=== PATIENT | male | born 1950 | race Caucasian/White ===

== ENCOUNTER → 2016-09-28 | Outpatient (CLI) | payer OTHER ==
[~2016-09-28] MED LIST: ALBUMIN HUMAN 25%, 25GM/100ML ONE; ASCO10004 PO; CHOL20002 PO; FURO20TA3 PO; LEUP3.75 IM; LIDOCAINE 1%, 20ML ONE; MULT-208 PO; OXYC5CAP4 PO; POLY17PO5 PO; PRAV20TA2 PO; PREG75CA PO; SODIUM BICARBONATE 4.2%, 5ML ONE; SPIR25TA3 PO
== END | disposition home or self-care (01) ==
LOC: RAD 11:37
PROVIDERS: ATTEND Internal Medicine Gastroenterology
DX: R18.8 Other ascites (principal); K70.30 Alcoholic cirrhosis of liver without ascites; R14.0 Abdominal distension (gaseous); N18.9 Chronic kidney disease, unspecified; R60.0 Localized edema
CPT/HCPCS: 49083; J3490; P9047

== ENCOUNTER → 2016-10-15 | Outpatient (CLI) | payer OTHER ==
[~2016-10-15] MED LIST changes: +ALBUMIN HUMAN 25% 200 ML IV ONE; -ALBUMIN HUMAN 25%, 25GM/100ML ONE
== END | disposition home or self-care (01) ==
LOC: RAD 10:43
PROVIDERS: ATTEND Internal Medicine Gastroenterology
DX: K70.31 Alcoholic cirrhosis of liver with ascites (principal); N18.9 Chronic kidney disease, unspecified; R60.0 Localized edema
CPT/HCPCS: 49083; J3490; P9047

== ENCOUNTER → 2016-11-08 | Outpatient (CLI) | payer OTHER ==
[~2016-11-08] MED LIST changes: -ALBUMIN HUMAN 25% 200 ML IV ONE; +ALBUMIN HUMAN 25% 300 ML IV ONE; -LIDOCAINE 1%, 20ML ONE; +LIDOCAINE 2%, 20ML ONE
== END | disposition home or self-care (01) ==
LOC: RAD 11:33
PROVIDERS: ATTEND Internal Medicine Gastroenterology
DX: K70.31 Alcoholic cirrhosis of liver with ascites (principal); R60.0 Localized edema; N18.9 Chronic kidney disease, unspecified
CPT/HCPCS: 49083; J3490; P9047

== ENCOUNTER → 2016-11-15 | Outpatient (CLI) | payer OTHER ==
[~2016-11-15] MED LIST changes: -ALBUMIN HUMAN 25% 300 ML IV ONE; -LIDOCAINE 2%, 20ML ONE; -SODIUM BICARBONATE 4.2%, 5ML ONE
== END | disposition home or self-care (01) ==
LOC: ROC 14:34
PROVIDERS: ATTEND Radiology Radiation Oncology
DX: Z08 Encounter for follow-up examination after completed treatment for malignant neoplasm (principal); C61 Malignant neoplasm of prostate; K74.60 Unspecified cirrhosis of liver; K76.6 Portal hypertension
CPT/HCPCS: 99212; G0463

== ENCOUNTER → 2016-12-03 | Outpatient (CLI) | payer OTHER ==
[~2016-12-03] MED LIST changes: +ALBUMIN HUMAN 25%, 25GM/100ML ONE
== END | disposition home or self-care (01) ==
LOC: RAD 12:39
PROVIDERS: ATTEND Internal Medicine Gastroenterology
DX: R18.8 Other ascites (principal); N18.9 Chronic kidney disease, unspecified; K70.30 Alcoholic cirrhosis of liver without ascites
CPT/HCPCS: 49083; P9047

== ENCOUNTER → 2016-12-16 | Outpatient (CLI) | payer OTHER ==
[~2016-12-16] MED LIST changes: +ALBUMIN HUMAN 25% 200 ML IV ONE; +ALBUMIN HUMAN 25%, 25GM/100ML IV ONE; -ALBUMIN HUMAN 25%, 25GM/100ML ONE; +LIDOCAINE 1%, 20ML ONE; +PLEASE ENTER HEIGHT AND WEIGHT MC SCH
== END | disposition home or self-care (01) ==
LOC: RAD 09:24
PROVIDERS: ATTEND Family Medicine
DX: K70.31 Alcoholic cirrhosis of liver with ascites (principal); N18.9 Chronic kidney disease, unspecified; R60.0 Localized edema
CPT/HCPCS: 49083; J3490; P9047

== ENCOUNTER → 2017-01-11 | Outpatient (CLI) | payer OTHER ==
[~2017-01-11] MED LIST changes: -ALBUMIN HUMAN 25% 200 ML IV ONE; -ALBUMIN HUMAN 25%, 25GM/100ML IV ONE; -PLEASE ENTER HEIGHT AND WEIGHT MC SCH
== END | disposition home or self-care (01) ==
LOC: RAD 09:59
PROVIDERS: ATTEND Internal Medicine Gastroenterology
DX: K70.31 Alcoholic cirrhosis of liver with ascites (principal); R60.0 Localized edema; N18.9 Chronic kidney disease, unspecified
CPT/HCPCS: 49083; J3490

== ENCOUNTER → 2017-02-23 | Outpatient (CLI) | payer OTHER ==
[~2017-02-23] MED LIST changes: +ALBUMIN HUMAN 25%, 25GM/100ML ONE; +OXYC5CAP2 PO; -OXYC5CAP4 PO
== END | disposition home or self-care (01) ==
LOC: RAD 13:46
PROVIDERS: ATTEND Internal Medicine Gastroenterology
DX: K70.31 Alcoholic cirrhosis of liver with ascites (principal); R60.0 Localized edema; N18.9 Chronic kidney disease, unspecified
CPT/HCPCS: 49083; J3490; P9047

== ENCOUNTER → 2017-05-23 | Outpatient (CLI) | payer MEDICARE, OTHER ==
[~2017-05-23] VITALS: Ht 177.8 cm; Wt 122.7 kg
[~2017-05-23] MED LIST changes: -ALBUMIN HUMAN 25%, 25GM/100ML ONE; -LIDOCAINE 1%, 20ML ONE; +PREG150C PO; +RIFA550T4 PO; +SPIR50TA2 PO; +ZINC220T PO
[2017-05-23 13:48] LABS: ASPARTATE AMINO TRANSFERASE 12 U/L (15-37); BLOOD UREA NITROGEN 24 mg/dL (7-18)
== END | disposition home or self-care (01) ==
LOC: STAR 12:37 → EDSTATUS 05-25 15:00
PROVIDERS: ATTEND Internal Medicine Gastroenterology
DX: Z01.818 Encounter for other preprocedural examination (principal); I83.10 Varicose veins of unspecified lower extremity with inflammation; Z86.010 Personal history of colon polyps
CPT/HCPCS: 36415; 80053; 93005

== ENCOUNTER → 2017-05-24 | Outpatient (CLI) | payer OTHER ==
[~2017-05-24] MED LIST changes: +ALBUMIN HUMAN 25%, 25GM/100ML ONE; +LIDOCAINE 1%, 10ML ONE
== END | disposition home or self-care (01) ==
LOC: RAD 11:30
PROVIDERS: ATTEND Internal Medicine Gastroenterology
DX: K70.31 Alcoholic cirrhosis of liver with ascites (principal); N18.9 Chronic kidney disease, unspecified; R60.0 Localized edema
CPT/HCPCS: 49083; J3490; P9047

== ENCOUNTER → 2017-11-04 | Outpatient (CLI) | payer OTHER ==
[~2017-11-04] MED LIST changes: -LIDOCAINE 1%, 10ML ONE; +LIDOCAINE-MPF 1%, 2ML ONE
== END | disposition home or self-care (01) ==
LOC: RAD 09:48
PROVIDERS: ATTEND Internal Medicine Gastroenterology
DX: K74.60 Unspecified cirrhosis of liver (principal); R18.8 Other ascites
CPT/HCPCS: 49083; J3490; P9047

== ENCOUNTER → 2017-12-12 | Outpatient (CLI) | payer OTHER ==
[~2017-12-12] MED LIST changes: -LIDOCAINE-MPF 1%, 2ML ONE; +LIDOCAINE-MPF 2% ,5ML ONE
== END | disposition home or self-care (01) ==
LOC: RAD 14:09
PROVIDERS: ATTEND Internal Medicine Gastroenterology
DX: K70.31 Alcoholic cirrhosis of liver with ascites (principal); R60.0 Localized edema; N18.9 Chronic kidney disease, unspecified; K72.10 Chronic hepatic failure without coma
CPT/HCPCS: 49083; J3490; P9047

== ENCOUNTER → 2018-01-05 | Outpatient (CLI) | payer OTHER ==
[~2018-01-05] MED LIST changes: -ALBUMIN HUMAN 25%, 25GM/100ML ONE; -LIDOCAINE-MPF 2% ,5ML ONE; -SPIR25TA3 PO; +SPIR25TA5 PO; -SPIR50TA2 PO; +SPIR50TA4 PO
== END | disposition home or self-care (01) ==
LOC: CFH 09:40
PROVIDERS: ATTEND Internal Medicine Gastroenterology
DX: K70.31 Alcoholic cirrhosis of liver with ascites (principal); R16.1 Splenomegaly, not elsewhere classified; I12.9 Hypertensive chronic kidney disease with stage 1 through stage 4 chronic kidney disease, or unspecified chronic kidney disease; N18.9 Chronic kidney disease, unspecified; K72.10 Chronic hepatic failure without coma; E55.9 Vitamin D deficiency, unspecified; I85.00 Esophageal varices without bleeding
CPT/HCPCS: 93975

== ENCOUNTER → 2018-01-13 | Outpatient (CLI) | payer OTHER ==
[~2018-01-13] MED LIST changes: +LIDOCAINE-MPF 2%, 2ML ONE
== END | disposition home or self-care (01) ==
LOC: RAD 08:39
PROVIDERS: ATTEND Internal Medicine Gastroenterology
DX: K70.31 Alcoholic cirrhosis of liver with ascites (principal); R53.83 Other fatigue; N18.9 Chronic kidney disease, unspecified; I85.00 Esophageal varices without bleeding; K72.10 Chronic hepatic failure without coma; E60 Dietary zinc deficiency; E55.9 Vitamin D deficiency, unspecified; R60.0 Localized edema
CPT/HCPCS: 49083; J3490

== ENCOUNTER → 2018-03-01 | Outpatient (CLI) | payer OTHER ==
[~2018-03-01] MED LIST changes: -CHOL20002 PO; +CHOL200052 PO
== END | disposition home or self-care (01) ==
LOC: RAD 11:35
PROVIDERS: ATTEND Internal Medicine Gastroenterology
DX: K70.31 Alcoholic cirrhosis of liver with ascites (principal); N18.9 Chronic kidney disease, unspecified; I85.00 Esophageal varices without bleeding; E55.9 Vitamin D deficiency, unspecified; K72.10 Chronic hepatic failure without coma
CPT/HCPCS: 49083; J3490

== ENCOUNTER → 2018-05-16 | Outpatient (CLI) | payer OTHER ==
[~2018-05-16] MED LIST changes: +LIDOCAINE-MPF 1%, 5ML ONE; -LIDOCAINE-MPF 2%, 2ML ONE
== END | disposition home or self-care (01) ==
LOC: RAD 11:53
PROVIDERS: ATTEND Internal Medicine Gastroenterology
DX: R18.8 Other ascites (principal)
CPT/HCPCS: 49083

== ENCOUNTER → 2018-08-16 | Outpatient (CLI) | payer OTHER ==
[~2018-08-16] MED LIST changes: +ERGO500018 PO; -LIDOCAINE-MPF 1%, 5ML ONE
== END | disposition home or self-care (01) ==
LOC: CFH 09:12
PROVIDERS: ATTEND Internal Medicine Gastroenterology
DX: R16.1 Splenomegaly, not elsewhere classified (principal); R18.8 Other ascites; R53.83 Other fatigue; I85.00 Esophageal varices without bleeding; I25.10 Atherosclerotic heart disease of native coronary artery without angina pectoris; E55.9 Vitamin D deficiency, unspecified; E60 Dietary zinc deficiency; Z86.010 Personal history of colon polyps
CPT/HCPCS: 93975

== ENCOUNTER → 2018-08-16 | Outpatient (CLI) | payer OTHER ==
[2018-08-16 12:49] LABS: INTERNATIONAL NORMALIZED RATIO 1.26 (0.93-1.1); PROTHROMBIN TIME 13.1 Seconds (9.6-11.5)
[2018-08-16 12:50] LABS: ALANINE AMINOTRANSFERASE 13 U/L (12-78); ALBUMIN 3.1 g/dL (3.4-5.0); ANION GAP 3 mmol/L (5-15); CALCIUM 8.5 mg/dL (8.5-10.1); CHLORIDE 110 mmol/L (98-107); CREATININE 1.55 mg/dL (0.7-1.3)
[2018-08-16 12:52] LABS: ALKALINE PHOSPHATASE 112 U/L (45-117); BILIRUBIN,TOTAL 1.2 mg/dL (0.2-1.0); TOTAL PROTEIN 7.2 g/dL (6.4-8.2)
[2018-08-16 13:16] LABS: BASOPHILS # (AUTO) 0.03 x10^3/uL (0-0.1); BASOPHILS % (AUTO) 1 % (0-1); EOSINOPHILS # (AUTO) 0.43 x10^3/uL (0-0.4); EOSINOPHILS % (AUTO) 9 % (1-7); LYMPHOCYTES # (AUTO) 0.72 x10^3/uL (1-3.4); LYMPHOCYTES % (AUTO) 15 % (22-44); MD SCAN; MEAN CORPUSCULAR HEMOGLOBIN 30.9 pg (27.5-34.5); MONOCYTES # (AUTO) 0.42 x10^3/uL (0.2-0.8); MONOCYTES % (AUTO) 9 % (2-9); NEUTROPHILS # (AUTO) 3.18 x10^3/uL (1.8-6.8); NEUTROPHILS % (AUTO) 67 % (42-75); PLATELET COUNT 55 x10^3/uL (130-400); RED CELL DISTRIBUTION WIDTH 15.4 % (9.4-14.8)
== END | disposition home or self-care (01) ==
LOC: STAR 11:35
PROVIDERS: ATTEND Internal Medicine Gastroenterology
DX: I85.00 Esophageal varices without bleeding (principal); R10.31 Right lower quadrant pain
CPT/HCPCS: 36415; 80053; 85025; 85610; 85730; 93005

== ENCOUNTER 2018-08-22 05:35 | Day surgery (SDC) | payer OTHER ==
[~2018-08-22] VITALS: Ht 177.8 cm; Wt 110.0 kg
[2018-08-22] MEDS ORDERED: LACTATED RINGERS 1,000 ML IV SCH (06:17)
[2018-08-22 06:18] VITALS: BP 110/66
[2018-08-22] MEDS ORDERED: ALBUTEROL/IPRATROPIUM 2.5MG/0.5MG, 3 ML NPPB PRN (07:30)
[2018-08-22] MEDS ORDERED: FENTANYL PF 100 MCG/2ML IV PRN (07:30)
[2018-08-22] MEDS ORDERED: hydrALAzine 20 MG/ML, 1ML IV PRN (07:30)
[2018-08-22] MEDS ORDERED: ONDANSETRON 2MG/ML, 2ML IV PRN (07:30)
[2018-08-22] MEDS ORDERED: OXYcodone 5 MG/5 ML ORAL.SOL UDC PO PRN (07:30)
[2018-08-22] MEDS ORDERED: MIDAZOLAM 1 MG/ML, 2ML IV PRN (07:30)
[2018-08-22] MEDS ORDERED: PROPOFOL 10 MG/ML, 50ML ONE (07:36)
== END 2018-08-22 09:15 | disposition home or self-care (01) ==
LOC: OUT 05:35
PROVIDERS: ATTEND Internal Medicine Gastroenterology
DX: I85.00 Esophageal varices without bleeding (principal); K76.6 Portal hypertension; K31.89 Other diseases of stomach and duodenum; K21.9 Gastro-esophageal reflux disease without esophagitis; I25.10 Atherosclerotic heart disease of native coronary artery without angina pectoris; I25.2 Old myocardial infarction
CPT/HCPCS: 43235; J2704; J7120

== ENCOUNTER 2018-12-22 12:54 | Outpatient (CLI) | payer OTHER | END 2018-12-22 23:59 | disposition home or self-care (01) | LOC: RAD 12:54 | PROVIDERS: ATTEND Internal Medicine Gastroenterology | DX: R18.8 Other ascites (principal) | CPT/HCPCS: 49083; J3490 ==